=== PATIENT | female | born 1985 | race Caucasian/White ===

== ENCOUNTER 2023-05-23 10:39 | Day surgery (SDC) | payer OTHER ==
[~2023-05-23 10:39] MED LIST: Pre Op ABX Message 1 EACH MISC MISCELLANE ONE
[2023-05-23] MEDS ORDERED: LIDOCAINE 1% (10MG/ML) FOR IV START INTRADERMA PRN (11:11)
[2023-05-23] MEDS ORDERED: SCOPOLAMINE 1 MG/72 HR PATCH TRANSDERM STA (12:01)
--- NOTE | 2023-05-23 12:01 | P.GSHP ---
History of Present Illness H&P Date: 05/23/23 CHIEF COMPLAINT: Severe abdominal pain due to adhesions HISTORY OF PRESENT ILLNESS: The patient is a 37-year-old female who presents with severe generalized abdominal pain from multiple surgeries. She has history of intra-abdominal adhesions from multiple prior surgeries including increasing abdominal pain for over 6 months. She now presents for diagnostic laparoscopy including lysis of adhesions. PAST MEDICAL HISTORY: Please see list. PAST SURGICAL HISTORY: Please see list. MEDICATIONS: Please see list. ALLERGIES: Please see list. SOCIAL HISTORY: No illicit drug use FAMILY HISTORY: No reports of Crohn disease or ulcerative colitis. REVIEW OF ORGAN SYSTEMS: CONSTITUTIONAL: Denies any fever or chills. Denies recent weight loss or weight gain. HEENT: Denies any trouble with vision, hearing or nosebleeds. No difficulty swallowing. LYMPHATIC: The patient denies any lumps and bumps around the neck. ENDOCRINE: Denies any thyroid disorders. Denies any blood sugar glucose intolerance. RESPIRATORY: Denies pneumonia. Denies any troubles with breathing or dyspnea on exertion. CARDIOVASCULAR: Denies any chest pain, palpitations, or recent heart attacks. GASTROINTESTINAL: Denies heart burn, constipation or bright red blood per rectum. GENITOURINARY: Complications from hysterectomy requiring exploration x 2 MUSCULOSKELETAL: Denies any back pain, stiffness, joint arthritis. NEUROLOGIC: Denies any numbness or tingling along the distal extremities. No seizure disorders or headaches. PSYCHIATRIC: Denies depression or suidical ideation. HEMATOLOGIC: Denies any abnormal bleeding or bruising. BREASTS: Denies any breast lumps, pain or nipple discharge. PHYSICAL EXAM: GENERAL: Well-developed pleasant male in no acute distress. HEENT: No scleral icterus. Extraocular movements grossly intact. Moist buccal mucosa. NECK: Supple without lymphadenopathy. CHEST: Unlabored respirations. Equal bilateral excursions. CARDIOVASCULAR: Regular rate and rhythm. Distal 2+ pulses. ABDOMEN: Soft, nondistended. Severe lower abdominal pain with generalized abdominal pain MUSCULOSKELETAL: No clubbing, cyanosis, or edema. SKIN: Well perfused. PSYCH: Alert and oriented to self, place and time ASSESSMENT: 1. Severe lower abdominal pain 2. History of multiple abdominal surgeries. 3. Intra-abdominal adhesions. PLAN: 1. Robotic lysis of adhesions were described in detail including risk of injury to the intestine, need for further surgery, and open technique. 2. DVT prophylaxis. 3. Antibiotic prophylaxis. Past Medical History Past Medical History: Asthma Additional Past Medical History / Comment(s): long haul covid, History of Any Multi-Drug Resistant Organisms: None Reported Past Surgical History: Section, Hysterectomy Additional Past Surgical History / Comment(s): laaraposcopy x 2 for endometriosis, repeat hyst for retained parts of uterus, Past Anesthesia/Blood Transfusion Reactions: No Reported Reaction Smoking Status: Former smoker - Past Family History Father Family Medical History: No Reported History Medications and Allergies Home Medications Medication Instructions Recorded Confirmed Type Cetirizine HCl [Zyrtec] 10 mg PO DAILY 05/22/23 05/22/23 History Fluticasone Propion/Salmeterol 1 inh INHALATION BID 05/22/23 05/22/23 History [Advair 500-50 Diskus] Allergies Allergy/AdvReac Type Severity Reaction Status Date / Time No Known Allergies Allergy Verified 05/23/23 11:32
[2023-05-23] MEDS: LACTATED RINGERS 1,000 ML IV SCH (12:05)
[2023-05-23] MEDS: ACETAMINOPHEN TAB 500 MG TAB PO PRN (12:11)
[2023-05-23] MEDS: MELOXICAM 7.5 MG TAB PO PRN (12:11)
[2023-05-23] MEDS: ONDANSETRON 4 MG/2 ML VIAL IVP PRN (12:11)
[2023-05-23] MEDS: SCOPOLAMINE 1 MG/72 HR PATCH TRANSDERM ONE (12:11)
[2023-05-23 12:19] LABS: Basophils # (A) 0.1 k/uL (0-0.2); Basophils % (A) 1 %; Eosinophils # (A) 0.6 k/uL (0-0.7); Eosinophils % (A) 7 %; HCT 39.3 % (34.0-46.0); HGB 12.9 gm/dL (11.4-16.0); Lymphocytes % (A) 40 %; MCH 28.9 pg (25.0-35.0); MCHC 32.9 g/dL (31.0-37.0); Monocytes # (A) 0.4 k/uL (0-1.0); Monocytes % (A) 5 %; Neutrophils # (A) 3.5 k/uL (1.3-7.7); Neutrophils % (A) 46 %; Platelet Count 245 k/uL (150-450); RBC 4.46 m/uL (3.80-5.40); RDW 12.7 % (11.5-15.5); WBC 7.6 k/uL (3.8-10.6)
[2023-05-23 12:38] LABS: ALT 31 U/L (4-34); AST 28 U/L (14-36); African American GFR (CKD) >90 (>60 ml/min/1.73 sqM); Albumin 3.9 g/dL (3.5-5.0); Alkaline Phosphatase 70 U/L (38-126); Anion Gap 7 mmol/L; Blood Urea Nitrogen 12 mg/dL (7-17); Calcium 9.1 mg/dL (8.4-10.2); Carbon Dioxide 22 mmol/L (22-30); Chloride 108 mmol/L (98-107); Glucose 86 mg/dL (74-99); Non-African American GFR(CKD) >90 (>60 ml/min/1.73 sqM); Potassium 3.9 mmol/L (3.5-5.1); Sodium 137 mmol/L (137-145); Total Bilirubin 0.7 mg/dL (0.2-1.3); Total Protein 6.9 g/dL (6.3-8.2)
[2023-05-23] MEDS: fentaNYL (PF) 50 MCG/ML 2 ML AMP IVP ONE (13:32)
[2023-05-23] MEDS: MIDAZOLAM 2 MG/2 ML VIAL IVP ONE (13:32)
[2023-05-23] MEDS: HEPARIN SODIUM,PORCINE 5,000 UNIT/ML 1 ML VIAL SQ PRN (13:45)
[2023-05-23] MEDS: DEXAMETHASONE SOD PHOSPHATE 4 MG/ML 1 ML VIAL IVP ONE (13:46)
--- NOTE | 2023-05-23 14:45 | P.ANPRN ---
Procedure Note - Anesthesia - Nerve Block Performed Bilateral Erector Spinae Single Time Out Performed: Yes (1331) Date of Procedure: 05/23/23 Procedure Start Time: 13:32 Procedure Stop Time: 13:38 Location of Patient: PreOp Indication: Acute Post-Operative Pain, Requested by Surgeon Specifically requested for management of pain by : Ca Moran Sedation Type: Sedate with meaningful contact maintained Preparation: Sterile Prep Position: Prone Catheter: None Needle Types: Pajunk Needle Gauge: 21 Ultrasound used to visualize needle placement: Yes Ultrasound used to observe medication spread: Yes Injectate: 0.5% Ropivacaine (see comment for volume) (15cc +10cc nacl pf each side) Blood Aspirated: No Pain Paresthesia on Injection Noted: No Resistance on Injection: Normal Image Stored and Saved: Yes Events: Uneventful and Well Tolerated
[2023-05-23] MEDS ORDERED: PROPOFOL 10 MG/ML 20 ML VIAL IV ONE (15:17)
[2023-05-23] MEDS ORDERED: ROPIVACAINE 5 MG/ML 30 ML VIAL ONE (15:17)
[2023-05-23] MEDS ORDERED: fentaNYL (PF) 50 MCG/ML 2 ML AMP ONE (15:17)
[2023-05-23] MEDS ORDERED: MIDAZOLAM 2 MG/2 ML VIAL ONE (15:17)
[2023-05-23] MEDS ORDERED: LIDOCAINE 1% INJ 10MG/ML (20 ML MDV) ONE (15:17)
[2023-05-23] MEDS ORDERED: SUCCINYLCHOLINE CHLORIDE 200 MG/10 ML VIAL IV ONE (15:17)
[2023-05-23] MEDS ORDERED: HYDROmorphone (PF) 1 MG/ML ONE (15:17)
[2023-05-23] MEDS ORDERED: SODIUM CHLORIDE 0.9% (PF) 10 ML VIAL ONE (15:17)
[2023-05-23] MEDS ORDERED: ROCURONIUM 10 MG/ML (5 ML VIAL) IV ONE (15:17)
[2023-05-23] MEDS ORDERED: PHENYLEPHRINE 10 MG/ML VIAL ONE (15:17)
[2023-05-23] MEDS ORDERED: NEOSTIGMINE 1 MG/ML 10 ML VIAL ONE (15:17)
[2023-05-23] MEDS ORDERED: GLYCOPYRROLATE 0.2 MG/ML 2 ML VIAL ONE (15:17)
[2023-05-23] MEDS: SODIUM CHLORIDE 0.9% 50 ML with ceFAZolin 2,000 MG IV ONE (15:21)
[2023-05-23] MEDS: LIDOCAINE 1%-EPI 1:100,000 20 ML VIAL SQ ONE (15:59)
[2023-05-23] MEDS: LACTATED RINGERS 1,000 ML IV ONE (16:19)
[2023-05-23] MEDS: HYDROmorphone 0.5 MG/0.5 ML SYRINGE IVP PRN (17:10)
[2023-05-23 17:27] VITALS: RESP 16; TEMP 97.6
[2023-05-23] MEDS: ACETAMINOPHEN TAB 500 MG TAB ONE (18:18)
[2023-05-23] MEDS ORDERED: ONDANSETRON 4 MG/2 ML VIAL ONE (18:21)
[2023-05-23] MEDS: ONDANSETRON 4 MG/2 ML VIAL IVP ONE (18:21)
[2023-05-23 19:14] VITALS: BP 123/84; PULSE 74
--- NOTE | 2023-05-23 20:00 | P.OP ---
Date of Procedure: 05/23/23 Description of Procedure: SURGEON: CA MORAN MD PREOPERATIVE DIAGNOSES: 1. Lower abdominal pain 2. Personal history of endometriosis and adhesions 3. Umbilical hernia 4. Obesity due to excess calories, BMI 30.0 5. Asthma 6. Panic disorder POSTOPERATIVE DIAGNOSES: 1. Lower abdominal pain 2. Personal history of endometriosis and adhesions 3. Incarcerated incisional hernia 4. Obesity due to excess calories, BMI 30.0 5. Asthma 6. Panic disorder 7. Pelvic adhesions OPERATION: 1. Robotic-assisted da Divya Xi laparoscopic with lysis of adhesions 2. Robotic-assisted da Divya Xi laparoscopic reduction of incarcerated incisional hernia, 1 cm at umbilicus ESTIMATED BLOOD LOSS: 5 mL. SPECIMENS REMOVED: None. COMPLICATIONS: None. OPERATIVE FINDINGS: 1. No inguinal hernias identified 2. Appendix mildly dilated 3. Gallbladder unremarkable 4. Endometriosis along sigmoid mesentery/pelvis 5. Residual left ovary with simple cyst 2 cm 6. Redundant sigmoid colon with adhesions lysed 7. Mild fatty liver disease 8. Incarcerated umbilical hernia, 1 cm reduced of preperitoneal fat INDICATIONS: The patient is a 37-year-old female who presents with moderate severe lower abdominal pain. Surgical intervention with diagnostic laparoscopy, lysis of adhesions were described. Informed consent was obtained. Robotic assisted laparoscopic approach was described. Benefits and risks of the procedure including but not limited to bleeding, infection was described. Informed consent was obtained. DESCRIPTION OF PROCEDURE: Patient was brought to the operating room, placed in supine position. After general induction, the abdomen had been prepped and draped in standard sterile fashion. The robotic da Divya XI system was primed. After a timeout protocol was performed, the patient had been prepped and draped in standard sterile fashion. The robot was docked along the left lateral abdomen. Please note prior to docking of the robot; however, a 5 mm 0 degrees laparoscopic trocar entry was performed along the left upper quadrant. Next, three 8 mm robotic ports were placed along the left lateral abdominal wall abdomen. Trochars were placed at least 10 to 15 cm away from the target anatomy. Instruments including graspers and scissors with cautery were interchanged by the sales assistant entertainment and media. I had sat at the console. No gross omentum to abdominal wall adhesions were identified. The small bowel was investigated from the terminal ileum including ileocecal valve proximally to the ligament of Treitz without abnormality. The appendix is mildly dilated however without gross evidence of acute appendicitis. Pelvic adhesions involving the sigmoid colon the left side was identified and sharply lysed using scissors. Less than 2 mm endometriosis was found along the sigmoid mesentery of the pelvis undisturbed. Left enlarged ovary 2 cm with simple cyst was identified. Uterus including right ovary was surgically absent. Gallbladder was unremarkable. Mild fatty liver disease was found. At the umbilicus, incarcerated fat-containing hernia was identified and reduced using graspers. Specimen was obtained of the incarcerated umbilical hernia, 1 cm. Hemostasis was checked. The sigmoid colon was highly redundant. No large or small bowel obstruction was identified. The robot was undocked. All pneumoperitoneum and instruments were evacuated from the abdominal cavity. The incisions were reapproximated using 4-0 Monocryl in an interrupted subcuticular fashion. Please note along the trocar sites, local anesthetic was placed as a field block prior to insertion of all instruments. Umbilical dressing was placed with Tegaderm for reduced umbilical hernia. Exofin was applied to the skin. Abdominal binder was placed. At the end of the procedure needle, sponge, and instrument count had been verified correct by the surgical technologist. The patient was transferred to postanesthesia care unit in stable condition. Plan - Discharge Summary Discharge Rx Participant: No New Discharge Prescriptions: New Simethicone [Gas-X] 125 mg PO AC-TID PRN #20 capsule PRN Reason: Pain Ibuprofen [Motrin] 600 mg PO Q8HR PRN #30 tab PRN Reason: Pain Acetaminophen Tab [Tylenol Tab] 1,000 mg PO Q6HR PRN #30 tablet PRN Reason: Pain Continue Fluticasone Propion/Salmeterol [Advair 500-50 Diskus] 1 inh INHALATION BID Cetirizine HCl [Zyrtec] 10 mg PO DAILY Discharge Medication List Cetirizine HCl [Zyrtec] 10 mg PO DAILY 05/22/23 [History] Fluticasone Propion/Salmeterol [Advair 500-50 Diskus] 1 inh INHALATION BID 05/22/23 [History] Acetaminophen Tab [Tylenol Tab] 1,000 mg PO Q6HR PRN #30 tablet 05/23/23 [Rx] Ibuprofen [Motrin] 600 mg PO Q8HR PRN #30 tab 05/23/23 [Rx] Simethicone [Gas-X] 125 mg PO AC-TID PRN #20 capsule 05/23/23 [Rx] Follow up Appointment(s)/Referral(s): Ca Moran MD [STAFF PHYSICIAN] - 05/27/23 3:30 pm Patient Instructions/Handouts: *[facility] - (Anesthesia) Discharge Instructions Outpatient Surgery, *[facility] - Scopalamine Patch Instructions Activity/Diet/Wound Care/Special Instructions: DO NOT REMOVE UMBILICAL DRESSING. Using antibacterial soap. No lifting over 4 pounds 4 weeks, June 21June shower. No bathtub soaks for 2 weeks, June 05 Wear abdominal binder daily for comfort except for showering. Use ice along incisions for today to prevent swelling. Take tylenol, aleve/ibuprofen, simethicone scheduled for 3 days for best pain relief Discharge Disposition: HOME SELF-CARE
== END 2023-05-23 19:04 | disposition home or self-care (01) ==
LOC: OR 10:39
PROVIDERS: ATTEND Surgery Plastic and Reconstructive Surgery
DX: K43.0 Incisional hernia with obstruction, without gangrene (principal); K66.0 Peritoneal adhesions (postprocedural) (postinfection); J45.909 Unspecified asthma, uncomplicated; F41.0 Panic disorder [episodic paroxysmal anxiety]; K21.9 Gastro-esophageal reflux disease without esophagitis; E66.09 Other obesity due to excess calories; Z68.30 Body mass index [BMI] 30.0-30.9, adult; Z90.710 Acquired absence of both cervix and uterus; Z98.891 History of uterine scar from previous surgery; Z87.891 Personal history of nicotine dependence; Z79.51 Long term (current) use of inhaled steroids; Z79.899 Other long term (current) drug therapy; Z98.890 Other specified postprocedural states
CPT/HCPCS: 64999; 80053; 85025; 49592; J2250; J0330; J1644; J1100; J2710; J2405; J0690; J2001; J3010; J1170 ×2; J2795; J2704; J2371; 88302

== ENCOUNTER 2023-06-12 09:00 | Day surgery (SDC) | payer OTHER ==
[2023-06-09 12:08] VITALS: BMI 29.7
--- NOTE | 2023-06-12 08:08 | P.GSHP ---
History of Present Illness H&P Date: 06/12/23 CHIEF COMPLAINT: Change in bowel habits and gastroesophageal reflux disease HISTORY OF PRESENT ILLNESS: The patient is a 37-year-old female who presents for change in bowel habits over 6 months and gastroesophageal reflux disease. Upper and lower endoscopy was offered for further evaluation and management. PAST MEDICAL HISTORY: Please see list. PAST SURGICAL HISTORY: Please see list. MEDICATIONS: Please see list. ALLERGIES: Please see list. SOCIAL HISTORY: No illicit drug use FAMILY HISTORY: No reports of Crohn disease or ulcerative colitis. REVIEW OF ORGAN SYSTEMS: CONSTITUTIONAL: No reports of fevers or chills. PHYSICAL EXAM: VITAL SIGNS: Stable GENERAL: Well-developed pleasant in no acute distress. HEENT: No scleral icterus. Extraocular movements grossly intact. Moist buccal mucosa. NECK: Supple without lymphadenopathy. CHEST: Unlabored respirations. Equal bilateral excursions. CARDIOVASCULAR: Regular rate and rhythm. Distal 2+ pulses. ABDOMEN: Soft, nontender, nondistended. MUSCULOSKELETAL: No clubbing, cyanosis, or edema. ASSESSMENT: 1. Change in bowel habit 2. Gastroesophageal reflux disease PLAN: 1. Recommend proceeding with a lower and upper endoscopy Past Medical History Past Medical History: Asthma, GERD/Reflux Additional Past Medical History / Comment(s): long haul covid, allergies, bloating indigestion History of Any Multi-Drug Resistant Organisms: None Reported Past Surgical History: Adenoidectomy, Section, Hysterectomy, Tonsillectomy Additional Past Surgical History / Comment(s): laaraposcopy x 2 for endometriosis,05/23/23 repeat hyst for retained parts of uterus, Past Anesthesia/Blood Transfusion Reactions: No Reported Reaction Additional Past Anesthesia/Blood Transfusion Reaction / Comment(s): no blood transfusion Smoking Status: Former smoker - Past Family History Father Family Medical History: No Reported History Medications and Allergies Home Medications Medication Instructions Recorded Confirmed Type Cetirizine HCl [Zyrtec] 10 mg PO DAILY 05/22/23 06/09/23 History Fluticasone Propion/Salmeterol 1 inh INHALATION BID 05/22/23 06/09/23 History [Advair 500-50 Diskus] Acetaminophen Tab [Tylenol Tab] 1,000 mg PO Q6HR PRN #30 tablet 05/23/23 06/09/23 Rx Ibuprofen [Motrin] 600 mg PO Q8HR PRN #30 tab 05/23/23 06/09/23 Rx Simethicone [Gas-X] 125 mg PO AC-TID PRN #20 capsule 05/23/23 06/09/23 Rx Albuterol Inhaler [Ventolin Hfa 1 - 2 puff INHALATION Q6H PRN 06/09/23 06/09/23 History Inhaler] Allergies Allergy/AdvReac Type Severity Reaction Status Date / Time No Known Allergies Allergy Verified 05/23/23 11:32
[2023-06-12] MEDS: LACTATED RINGERS 1,000 ML IV ONE (09:19)
[2023-06-12] MEDS ORDERED: LACTATED RINGERS 1,000 ML IV SCH (09:20)
[2023-06-12 10:11] VITALS: TEMP 96.8
[2023-06-12] MEDS ORDERED: LIDOCAINE 1% INJ 10MG/ML (20 ML MDV) ONE (10:14)
[2023-06-12] MEDS ORDERED: PROPOFOL 10 MG/ML 20 ML VIAL IV ONE (10:14)
--- NOTE | 2023-06-12 10:51 | P.PCN ---
Date of Procedure: 06/12/23 Description of Procedure: PREOPERATIVE DIAGNOSIS: Abnormal stool function Change in bowel habits Generalized abdominal pain POSTOPERATIVE DIAGNOSIS: Microscopic colitis OPERATION: Colonoscopy to the cecum, ileocecal valve and appendiceal orifice. Colonoscopy with random cold forceps biopsies for microscopic colitis SURGEON: Ca Moran MD. ANESTHESIA: MAC. INDICATIONS: The patient is a 37-year-old female who presents with generalized abdominal pain,altered stools including change in bowel habits. Benefits and risks were described and informed consent was obtained. DESCRIPTION OF PROCEDURE: The patient had undergone GoLYTELY prep. The patient had been brought into the operating room and laid in the left lateral decubitus position. After adequate intravenous sedation, the rectum was examined with 2% lidocaine jelly. External hemorrhoids were encountered. The rectal tone was within normal limits. No lesions were palpated in the rectal vault. An Olympus colonoscope was advanced until the cecum, ileocecal valve and appendiceal orifice were clearly viewed. The prep was fair. No scattered diverticulosis was encountered. No colonic polyps were found. Cold forceps biopsies randomly were obtained for microscopic colitis. Retroflexion of the scope demonstrated grade 4 internal hemorrhoids without active bleeding or inflammation. The colon was desufflated. The patient had tolerated the procedure well. Withdrawal time was over 6 minutes. FINDINGS: Aronchick preparation quality scale 2+ (1-5) Internal hemorrhoids, grade 4 External prolapsed hemorrhoids, grade 4 No arteriovenous malformations. No adenomatous polyps. Cold forceps biopsies obtained for microscopic colitis RECOMMENDATIONS: Lower endoscopy as needed Plan - Discharge Summary Discharge Rx Participant: No New Discharge Prescriptions: New Omeprazole [PriLOSEC] 40 mg PO DAILY #14 cap Continue Fluticasone Propion/Salmeterol [Advair 500-50 Diskus] 1 inh INHALATION BID Cetirizine HCl [Zyrtec] 10 mg PO DAILY Albuterol Inhaler [Ventolin Hfa Inhaler] 1 - 2 puff INHALATION Q6H PRN PRN Reason: Shortness Of Breath Simethicone [Gas-X] 125 mg PO AC-TID PRN #20 capsule PRN Reason: Pain Ibuprofen [Motrin] 600 mg PO Q8HR PRN #30 tab PRN Reason: Pain Acetaminophen Tab [Tylenol] 1,000 mg PO Q6HR PRN #30 tablet PRN Reason: Pain Discharge Medication List Cetirizine HCl [Zyrtec] 10 mg PO DAILY 05/22/23 [History] Fluticasone Propion/Salmeterol [Advair 500-50 Diskus] 1 inh INHALATION BID 05/22/23 [History] Acetaminophen Tab [Tylenol] 1,000 mg PO Q6HR PRN #30 tablet 05/23/23 [Rx] Ibuprofen [Motrin] 600 mg PO Q8HR PRN #30 tab 05/23/23 [Rx] Simethicone [Gas-X] 125 mg PO AC-TID PRN #20 capsule 05/23/23 [Rx] Albuterol Inhaler [Ventolin Hfa Inhaler] 1 - 2 puff INHALATION Q6H PRN 06/09/23 [History] Omeprazole [PriLOSEC] 40 mg PO DAILY #14 cap 06/12/23 [Rx] Follow up Appointment(s)/Referral(s): Ca Moran MD [STAFF PHYSICIAN] - 06/24/23 3:45 pm Patient Instructions/Handouts: Gastritis (DC), GERD (Gastroesophageal Reflux Disease) (DC) Discharge Disposition: HOME SELF-CARE
[2023-06-12 11:00] VITALS: BP 94/61; PULSE 84; RESP 12
--- NOTE | 2023-06-12 11:39 | P.PCN ---
Date of Procedure: 06/12/23 Description of Procedure: PREOPERATIVE DIAGNOSIS: Gastroesophageal reflux disease. Morbid obesity. POSTOPERATIVE DIAGNOSIS: Gastroesophageal reflux disease. Morbid obesity. Gastritis. Diaphragmatic hiatal hernia OPERATION: Esophagogastroduodenoscopy with biopsies along antrum and duodenum SURGEON: Ca Moran MD ANESTHESIA: MAC. INDICATIONS: The patient is a 45-year-old female who presents with reflux disease. Benefits and risks of the procedure were described. Informed consent was obtained. DESCRIPTION: The patient was brought into the endoscopy suite and laid in the left lateral decubitus position. An Olympus gastroscope was passed along the posterior oropharynx down to the distal esophagus where the squamocolumnar junction was encountered at 40 cm from the incisors. The stomach was entered and no bile reflux was found. Additional findings are listed below. Biopsies with cold fo rceps were obtained of the antrum. The first through third portion of the duodenum was examined. Retroflexion of the scope confirmed Hill grade 3 lower esophageal valve. The squamocolumnar junction demonstrated LA grade B erosive esophagitis. The stomach was desufflated. The patient tolerated the procedure well. FINDINGS: Squamocolumnar junction 40 cm from the incisors. Diaphragmatic hiatus at 40 cm. Hill grade 3 lower esophageal valve. LA grade C erosive esophagitis. Biopsies obtained of the esophagus. Biopsies obtained of the duodenum. Chronic gastritis with biopsies obtained. RECOMMENDATIONS: Upper endoscopy as needed. Omeprazole 40 mg daily
== END 2023-06-12 11:44 | disposition home or self-care (01) ==
LOC: ORWHC2ENDO 09:00
PROVIDERS: ATTEND Surgery Plastic and Reconstructive Surgery
DX: K29.50 Unspecified chronic gastritis without bleeding (principal); K64.3 Fourth degree hemorrhoids; K64.4 Residual hemorrhoidal skin tags; K21.00 Gastro-esophageal reflux disease with esophagitis, without bleeding; J45.909 Unspecified asthma, uncomplicated; E66.01 Morbid (severe) obesity due to excess calories; K44.9 Diaphragmatic hernia without obstruction or gangrene; Z79.51 Long term (current) use of inhaled steroids; Z87.891 Personal history of nicotine dependence; Z79.899 Other long term (current) drug therapy
CPT/HCPCS: 88305; 45380; 43239; J2001; J2704

== ENCOUNTER → 2023-06-26 | Outpatient (CLI) | payer MEDICARE ==
--- NOTE | 2023-06-26 16:54 | NM ---
EXAMINATION TYPE: NM hepatobiliary w EF DATE OF EXAM: 06/26/2023 2:58 PM COMPARISON: Ultrasound 06/26/2023 CLINICAL INDICATION:Female, 37 years old with history of R10.11 RUQ PAIN; TECHNIQUE: The patient was given 4.7 mCi of Technetium 99m-Mebrofenin as a radiotracer and multiple scintigraphic images were obtained of the abdomen. Gallbladder function was also assessed after the a dministration of ensure drink and additional scintigraphic images were obtained of the abdomen. A reg ion of interest was drawn over the gallbladder and a timing activity curve was generated. The gallbla dder ejection fraction was calculated. FINDINGS: Normal uptake of radiotracer was identified within the liver with excretion into the hepatic and comm on biliary ducts within 6 minutes. There was normal progressive washout of the liver over the course of the study. Radiotracer uptake within the gallbladder at 12 minutes as well as small bowel activity was identified at 10 minutes. Maximum calculated gallbladder ejection fraction is: 82% at 30 minutes (Normal gallbladder ejection fraction is > 35%) IMPRESSION: 1. Normal hepatobiliary scan. 2. Normal ejection fraction.
--- NOTE | 2023-06-27 08:08 | US ---
EXAMINATION TYPE: US gallbladder DATE OF EXAM: 06/26/2023 COMPARISON: NONE CLINICAL INDICATION: Female, 37 years old with history of R1011 RIGHT UPPER QUAD PAIN; Nausea, abdomi nal pain TECHNIQUE: Multiple sonographic images of the right upper quadrant are obtained. FINDINGS: EXAM MEASUREMENTS: Liver Length: 15.8 cm Gallbladder Wall: 0.2 cm CBD: 0.4 cm Right Kidney: 10.4 x 4.0 x 4.9 cm Pancreas: appears wnl Liver: visualized portions appear wnl Gallbladder: probable small stones Evidence for sonographic Adorno's sign: no CBD: wnl Right Kidney: no evidence of hydronephrosis IMPRESSION: Mild cholelithiasis with no sonographic evidence of acute cholecystitis.
== END | disposition home or self-care (01) ==
LOC: RADUSWWP 08:00
PROVIDERS: ATTEND Surgery Plastic and Reconstructive Surgery
DX: K80.20 Calculus of gallbladder without cholecystitis without obstruction (principal)
CPT/HCPCS: 76705; 78226; A9537